=== PATIENT | male | born 1955 | race African-American/Black ===

== ENCOUNTER 2017-08-26 20:18 | Emergency (ER) | payer BC ==
[2017-08-26] MEDS ORDERED: NA CHLORIDE 0.9% 500 ML ONE (21:08)
[2017-08-26] MEDS ORDERED: KETOROLAC 30 MG/ML INJ ONE (21:08)
[2017-08-26] MEDS ORDERED: MORPHINE 4 MG/ML SYR ONE (21:08)
[2017-08-26 21:11] LABS: Absolute Lymphocytes (CBC) 0.6 K/uL (0.7-4.9); Absolute Monocytes 1.3 K/uL (0.1-1.3); Absolute Neutrophil 17.3 K/uL (1.8-8.0); Basophils % 0.2 % (0-1.3); Eosinophils % 0.1 % (0-4.4); Hematocrit 36.7 % (39.6-49.0); Lymphocytes % 3.2 % (15.3-44.8); MCV 84.8 fL (80-100); MPV 8.4 fL (7.6-11.3); Monocytes % 6.9 % (3.3-12.3); RBC Red Blood Cell Count 4.33 M/uL (4.33-5.43)
[2017-08-26 21:28] LABS: Albumin 3.2 g/dL (3.4-5.0); Bilirubin Direct 0.2 mg/dL (0-0.2); Bilirubin Total 0.7 mg/dL (0.2-1.0); Potassium 3.6 mmol/L (3.5-5.1); Protein, Total 8.7 g/dL (6.4-8.2)
[2017-08-26 21:42] LABS: Urine White Blood Cell Casts OK
[2017-08-26 21:43] LABS: Blood Morphology Comment NOT SEEN (NOT SEEN); Platelet Estimate ADEQ
--- NOTE | 2017-08-26 22:06 | RAD REPORT ---
EXAM DESCRIPTION: US - Scrotum Testicles - 08/26/2017 9:51 pm CLINICAL HISTORY: Testicular pain. Pain and swelling COMPARISON: No comparisons FINDINGS: The right testicle 4.6 x 3.2 x 2.5 cm. No intratesticular masses or evidence of testicular torsion. The left testicle 4.3 x 2.8 x 1.7 cm. No intratesticular masses or evidence of testicular torsion. Increased blood flow is seen surrounding the right testicle with echogenic tissue also noted. The fin dings are suspicious for epididymitis. The left epididymis appears normal. No pathologic fluid collection. IMPRESSION: Right epididymitis is suspected.
[2017-08-27] MEDS ORDERED: NA CHLORIDE 0.9% 1,000 ML ONE (00:13)
[2017-08-27 00:44] LABS: Urine Blood NEGATIVE (NEG); Urine Glucose NEGATIVE (NEG); Urine Protein 1+ (NEG); Urine Specific Gravity 1.015 (1.005-1.030); Urine pH 5.5 (5.0-7.0)
[2017-08-27 00:56] LABS: Urine Bacteria >50 /HPF (NONE SEEN); Urine Culture Reflex Order REFLEXED; Urine RBC NONE SEEN /HPF (NONE SEEN)
--- NOTE | 2017-08-27 01:43 | ER ---
Nurse's Notes [facility] Name: Vlad Hart Age: 61 yrs Sex: Male : 1955 Arrival Date: 08/26/2017 Time: 20:19 Bed 8 Private MD: Tung Aguilar Diagnosis: Epididymitis-Left Presentation: 08/26 20:32 Presenting complaint: Patient states: Reports right groin pain since yesterday with aj swelling to right testicle. Transition of care: patient was not received from another setting of care. Onset of symptoms was August 25, 2017. Risk Assessment: Do you want to hurt yourself or someone else? Patient reports no desire to harm self or others. Initial Sepsis Screen: Does the patient meet any 2 criteria? No. Patient's initial sepsis screen is negative. Does the patient have a suspected source of infection? No. Patient's initial sepsis screen is negative. Care prior to arrival: None. 20:32 Method Of Arrival: Ambulatory aj 20:32 Acuity: ARIADNA 2 aj Triage Assessment: 20:33 General: Appears in no apparent distress. comfortable, Behavior is calm, cooperative, aj appropriate for age. Pain: Complains of pain in groin and right femoral area. Neuro: Level of Consciousness is awake, alert, obeys commands, Oriented to person, place, time, situation, Appropriate for age. Respiratory: Airway is patent Respiratory effort is even, unlabored, Respiratory pattern is regular, symmetrical. : Reports pain in right in suprapubic area testicle. Derm: Skin is intact, is healthy with good turgor, Skin is pink, warm \T\ dry. normal. Historical: - Allergies: 20:33 No Known Allergies; aj - Home Meds: 20:33 unknown HTN med [Active]; aj - PMHx: 20:33 Hypertension; asbestosis; aj - PSHx: 20:33 None; aj - Immunization history:: Adult Immunizations up to date. - Social history:: Smoking status: Patient uses tobacco products, smokes one pack cigarettes per day. - Ebola Screening: : Patient negative for fever greater than or equal to 101.5 degrees Fahrenheit, and additional compatible Ebola Virus Disease symptoms Patient denies exposure to infectious person Patient denies travel to an Ebola-affected area in the 21 days before illness onset No symptoms or risks identified at this time. Screenin:16 Abuse screen: Denies threats or abuse. Denies injuries from another. Nutritional kr2 screening: No deficits noted. Tuberculosis screening: No symptoms or risk factors identified. Fall Risk IV access (20 points). Assessment: 20:40 General: Appears in no apparent distress. comfortable, well groomed, well developed, kr2 well nourished, Behavior is calm, cooperative, appropriate for age. Pain: Complains of pain in right femoral area and groin Pain does not radiate. Pain currently is 0 out of 10 on a pain scale. at worst was 8 out of 10 on a pain scale. Quality of pain is described as sharp, shooting, stabbing, Is continuous, Alleviated by rest, Aggravated by increased activity. Neuro: Level of Consciousness is awake, alert, obeys commands, Oriented to person, place, time, situation, Appropriate for age. Cardiovascular: Capillary refill < 3 seconds in bilateral fingers Patient's skin is warm and dry. Respiratory: Airway is patent Respiratory effort is even, unlabored, Respiratory pattern is regular, symmetrical. GI: Abdomen is flat, non-distended, Abd is soft and non tender X 4 quads. : Denies inability to void. : Reports testicular swelling. EENT: Oral mucosa is moist. Derm: Skin is intact, is healthy with good turgor, Skin is pink, warm \T\ dry. Musculoskeletal: Circulation, motion, and sensation intact. 22:09 Reassessment: Patient appears in no apparent distress at this time. Patient and/or kr2 family updated on plan of care and expected duration. Pain level reassessed. Patient is alert, oriented x 3, equal unlabored respirations, skin warm/dry/pink. Patient returned from ultrasound with saline lock clotted off with blood. Removed, catheter intact, pressure dressing applied. 08/27 01:25 Reassessment: Patient appears in no apparent distress at this time. Patient and/or rv family updated on plan of care and expected duration. Pain level reassessed. Patient is alert, oriented x 3, equal unlabored respirations, skin warm/dry/pink. patient is lying on bed. comfortable with stable vital signs. awaiting ct scan result. Vital Signs: 08/26 20:33 BP 151 / 97; Pulse 90; Resp 17; Temp 98.6; Pulse Ox 98% on R/A; Weight 83.91 kg; Height aj 6 ft. 1 in. (185.42 cm); 22:00 BP 168 / 96; Pulse 92; Resp 16; Pulse Ox 99% on R/A; kr2 23:00 BP 153 / 97; Pulse 94; Resp 17; Pulse Ox 99% on R/A; kr2 08/27 00:44 BP 180 / 98; Pulse 92; Resp 16; Pulse Ox 99% on R/A; kr2 01:26 BP 165 / 90; Pulse 98; Resp 16; Pulse Ox 100% on R/A; rv 08/26 20:33 Body Mass Index 24.41 (83.91 kg, 185.42 cm) aj ED Course: 08/26 20:19 Patient arrived in ED. ds1 20:19 Tung Aguilar MD is Private Physician. ds1 20:33 Triage completed. aj 20:33 Arm band placed on right wrist. Patient placed in an exam room. aj 20:38 Kelvin Moore PA is PHCP. cp 20:38 Lewis Archer MD is Attending Physician. cp 20:40 Patient has correct armband on for positive identification. Bed in low position. Call kr2 light in reach. Side rails up X 1. Pulse ox on. NIBP on. 20:45 Nedra Pires, [facility] is Primary Nurse. kr2 20:45 Door closed. Warm blanket given. Pillow given. kr2 20:45 Inserted saline lock: 22 gauge in left antecubital area, using aseptic technique. Blood kr2 collected. 21:44 Ultrasound completed. Patient tolerated well. sg3 21:51 US Scrotum Testicles In Process Unspecified. EDMS 22:10 IV discontinued, intact, bleeding controlled, No redness/swelling at site. Pressure kr2 dressing applied. 22:10 Inserted saline lock: 20 gauge in right antecubital area, using aseptic technique. kr2 23:[address] via wheelchair. kw1 08/27 00:00 Urine collected: clean catch specimen, clear. kr2 00:14 CT completed. Patient tolerated procedure well. Patient moved back from CT. kw1 00:20 CT Abd/Pelvis - W/Contrast In Process Unspecified. EDMS 01:42 Ji Dahl MD is Referral Physician. cp 01:58 Urine Culture Sent. rv 01:59 No provider procedures requiring assistance completed. rv Administered Medications: 08/26 21:15 Drug: TORadol 30 mg Route: IVP; Site: left antecubital; kr2 21:30 Follow up: Response: No adverse reaction; Pain is decreased kr2 21:15 Drug: NS 0.9% 500 ml Route: IV; Rate: bolus; Site: left antecubital; kr2 22:30 Follow up: Response: No adverse reaction; IV Status: Completed infusion kr2 21:15 Drug: morphine 2 mg Route: IVP; Site: left antecubital; kr2 08/27 01:59 Follow up: Response: No adverse reaction; Pain is decreased rv 00:43 Drug: NS 0.9% 1000 ml Route: IV; Rate: 1 bolus; Site: right antecubital; kr2 01:58 Follow up: IV Status: Completed infusion rv 01:48 Drug: Tylenol #3 (300 mg-30 mg) 2 tabs Route: PO; aa1 01:58 Follow up: Response: Medication administered at discharge. rv 01:48 Drug: Rocephin - (cefTRIAXone) 1 grams Route: IVPB; Infused Over: 30 mins; Site: right aa1 antecubital; 01:58 Follow up: Response: Medication administered at discharge. rv 01:48 Drug: LevaQUIN 500 mg Route: PO; aa1 01:58 Follow up: Response: Medication administered at discharge. rv Outcome: 01:43 Discharge ordered by MD. cp 01:59 Discharged to home ambulatory. rv 01:59 Condition: improved 01:59 Discharge instructions given to patient, Instructed on discharge instructions, medication usage. 02:00 Patient left the ED. rv Addendum: 08/30/2017 11:34 Addendum: Culture Results: Positive urine culture. Bacteria is resistant to, has s s intermediate sensitivity, or is not tested against prescribed antibiotics. Report given to JORY for further evaluation and then to coach builder for follow up with patient. Phone call Attempt #1 Not a working number Certified letter sent to listed address for patient. Signatures: Dispatcher [employer] EDMS France Puente RN RN aa1 Twila Zepeda RN RN Awilda Arzola ds1 Sariah Harrison RN RN ss Page, Corey, PA PA Nedra Betancourt RN RN kr2 Maritza Jimenez kw1 Neisha Sagastume sg3 Mark Anthony Mcmullen, RN RN rv
--- NOTE | 2017-08-27 01:43 | EDPHYS ---
Physician Documentation [facility] Name: Vlad Hart Age: 61 yrs Sex: Male : 1955 Arrival Date: 08/26/2017 Time: 20:19 Bed 8 Private MD: Tung Aguilar ED Physician Lewis Archer HPI: 08/26 21:00 This 61 yrs old Black Male presents to ER via Ambulatory with complaints of Side cp Abdominal Pain. 21:00 The patient presents with right testicle swelling and pain. cp 21:00 Onset: The symptoms/episode began/occurred 3 day(s) ago. Associated signs and symptoms: cp Pertinent positives: abdominal pain, Pertinent negatives: constipation, dysuria, fever, hematuria, vomiting. Severity of symptoms: in the emergency department the symptoms are unchanged, despite home interventions. Historical: - Allergies: 20:33 No Known Allergies; aj - Home Meds: 20:33 unknown HTN med [Active]; aj - PMHx: 20:33 Hypertension; asbestosis; aj - PSHx: 20:33 None; aj - Immunization history:: Adult Immunizations up to date. - Social history:: Smoking status: Patient uses tobacco products, smokes one pack cigarettes per day. - Ebola Screening: : Patient negative for fever greater than or equal to 101.5 degrees Fahrenheit, and additional compatible Ebola Virus Disease symptoms Patient denies exposure to infectious person Patient denies travel to an Ebola-affected area in the 21 days before illness onset No symptoms or risks identified at this time. ROS: 21:10 Constitutional: Negative for body aches, chills, fever, poor PO intake. cp 21:10 Eyes: Negative for injury, pain, redness, and discharge. cp 21:10 ENT: Negative for drainage from ear(s), ear pain, sore throat, difficulty swallowing, difficulty handling secretions. 21:10 Cardiovascular: Negative for chest pain, edema, palpitations. 21:10 Respiratory: Negative for cough, shortness of breath, wheezing. 21:10 Abdomen/GI: Positive for abdominal pain, of the right lower quadrant, Negative for vomiting, diarrhea, constipation, black/tarry stool, rectal bleeding. 21:10 Back: Negative for pain at rest, pain with movement, radiated pain. 21:10 : Positive for testicular pain testicular swelling, Negative for injury or acute deformity, urinary symptoms, hematuria, penile pain. 21:10 Skin: Negative for cellulitis, rash. 21:10 Neuro: Negative for altered mental status, headache, syncope, weakness. 21:10 All other systems are negative. Exam: 21:15 Constitutional: The patient appears in no acute distress, alert, awake, non-toxic, well cp developed, well nourished, uncomfortable. 21:15 Head/Face: Normocephalic, atraumatic. cp 21:15 Eyes: Periorbital structures: appear normal, Conjunctiva: normal, no exudate, no injection, Sclera: no appreciated abnormality, Lids and lashes: appear normal, bilaterally. 21:15 ENT: External ear(s): are unremarkable, Nose: is normal, Mouth: Lips: moist, Oral mucosa: pink and intact, moist, Posterior pharynx: is normal, airway is patent, no erythema, no exudate, Voice: is normal. 21:15 Neck: ROM/movement: is normal, is supple, without pain, no range of motions limitations, no nuchal rigidity. 21:15 Chest/axilla: Inspection: normal, Palpation: is normal, no crepitus, no tenderness. 21:15 Cardiovascular: Rate: normal, Rhythm: regular, Edema: is not appreciated, JVD: is not appreciated. 21:15 Respiratory: the patient does not display signs of respiratory distress, Respirations: normal, no use of accessory muscles, no retractions, no splinting, no tachypnea, labored breathing, is not present, Breath sounds: are clear throughout, no decreased breath sounds, no stridor, no wheezing. 21:15 Abdomen/GI: Inspection: abdomen appears normal, Bowel sounds: active, all quadrants, Palpation: soft, in all quadrants, mild abdominal tenderness, in the right lower quadrant, voluntary guarding, is elicited in the right lower quadrant, involuntary guarding, is not appreciated. 21:15 : CVA tenderness, is absent, Male external genitalia: swelling, of the right testicle is noted, of the epididymis area, that is moderate, tenderness, of the right testicle is noted, of the epididymis area, that is moderate. 21:15 Skin: cellulitis, is not appreciated, no rash present. Vital Signs: 20:33 BP 151 / 97; Pulse 90; Resp 17; Temp 98.6; Pulse Ox 98% on R/A; Weight 83.91 kg; Height aj 6 ft. 1 in. (185.42 cm); 22:00 BP 168 / 96; Pulse 92; Resp 16; Pulse Ox 99% on R/A; kr2 23:00 BP 153 / 97; Pulse 94; Resp 17; Pulse Ox 99% on R/A; kr2 08/27 00:44 BP 180 / 98; Pulse 92; Resp 16; Pulse Ox 99% on R/A; kr2 01:26 BP 165 / 90; Pulse 98; Resp 16; Pulse Ox 100% on R/A; rv 08/26 20:33 Body Mass Index 24.41 (83.91 kg, 185.42 cm) aj MDM: 08/26 20:42 Patient medically screened. cp 08/27 00:00 Differential diagnosis: appendicitis, UTI, urinary retention, prostatitis, urethritis, cp kidney stone. 01:42 Data reviewed: vital signs, nurses notes, lab test result(s), radiologic studies, CT cp scan, ultrasound. 01:42 Counseling: I had a detailed discussion with the patient and/or guardian regarding: the cp historical points, exam findings, and any diagnostic results supporting the discharge/admit diagnosis, lab results, radiology results, the need for outpatient follow up, a urologist, to return to the emergency department if symptoms worsen or persist or if there are any questions or concerns that arise at home. Response to treatment: the patient's symptoms have markedly improved after treatment, VSS. Pain markedly improved. Will discharge to home for continued monitoring. 08/26 20:53 Order name: Amylase, Serum; Complete Time: 21:54 cp 08/26 20:53 Order name: Basic Metabolic Panel; Complete Time: 21:54 cp 08/26 21:55 Interpretation: Normal except: NA 133; GLUC 131; BUN 19; CRE 1.50; GFR 58. cp 08/26 20:53 Order name: CBC with Diff; Complete Time: 21:54 cp 08/26 21:55 Interpretation: Normal except: WBC 19.3; HGB 11.7; HCT 36.7; MCHC 31.9; MARTIN% 89.6; LYM% cp 3.2; NEUT A 17.3; LYMA 0.6. 08/26 20:53 Order name: Creatinine for Radiology; Complete Time: 21:54 cp 08/26 20:53 Order name: Hepatic Function; Complete Time: 21:54 cp 08/26 21:55 Interpretation: Normal except: TP 8.7; ALB 3.2; GLOB 5.5; A/G 0.6. 08/26 20:53 Order name: Lipase; Complete Time: 21:54 cp 08/26 20:53 Order name: Urine Microscopic Only; Complete Time: 01:39 cp 08/27 01:39 Interpretation: Normal except: UWBC 20-50; UBACT >50. 08/26 20:58 Order name: US Scrotum Testicles; Complete Time: 23:47 08/26 23:47 Interpretation: Report reviewed. 08/26 20:58 Order name: CT Abd/Pelvis - W/Contrast 08/26 21:14 Order name: CBC Smear Scan; Complete Time: 21:54 [facility] 08/27 00:40 Order name: Urine Dipstick--Ancillary (enter results); Complete Time: 01:39 rust 08/27 00:58 Order name: Urine Culture [facility] 08/26 20:53 Order name: IV Saline Lock; Complete Time: 21:16 08/26 20:53 Order name: Labs collected and sent; Complete Time: 21:15 08/26 20:53 Order name: Urine Dipstick-Ancillary (obtain specimen); Complete Time: 00:38 cp Administered Medications: 08/26 21:15 Drug: TORadol 30 mg Route: IVP; Site: left antecubital; kr2 21:30 Follow up: Response: No adverse reaction; Pain is decreased kr2 21:15 Drug: NS 0.9% 500 ml Route: IV; Rate: bolus; Site: left antecubital; kr2 22:30 Follow up: Response: No adverse reaction; IV Status: Completed infusion kr2 21:15 Drug: morphine 2 mg Route: IVP; Site: left antecubital; kr2 08/27 01:59 Follow up: Response: No adverse reaction; Pain is decreased rv 00:43 Drug: NS 0.9% 1000 ml Route: IV; Rate: 1 bolus; Site: right antecubital; kr2 01:58 Follow up: IV Status: Completed infusion rv 01:48 Drug: Tylenol #3 (300 mg-30 mg) 2 tabs Route: PO; aa1 01:58 Follow up: Response: Medication administered at discharge. rv 01:48 Drug: Rocephin - (cefTRIAXone) 1 grams Route: IVPB; Infused Over: 30 mins; Site: right aa1 antecubital; 01:58 Follow up: Response: Medication administered at discharge. rv 01:48 Drug: LevaQUIN 500 mg Route: PO; aa1 01:58 Follow up: Response: Medication administered at discharge. rv Disposition: 08/27/17 01:43 Discharged to Home. Impression: Epididymitis - Left. - Condition is Stable. - Discharge Instructions: Epididymitis. - Prescriptions for Levaquin 500 mg Oral Tablet - take 1 tablet by ORAL route once daily for 10 days; 10 tablet. Naprosyn 500 mg Oral Tablet - take 1 tablet by ORAL route 2 times per day take with food; 20 tablet. Tylenol- Codeine #3 300-30 mg Oral Tablet - take 2 tablets by ORAL route every 6 hours As needed; 15 tablet. - Medication Reconciliation Form, Thank You Letter, Antibiotic Education, Prescription Opioid Use form. - Follow up: Ji Dahl MD; When: 2 - 3 days; Reason: Recheck today's complaints. - Problem is new. - Symptoms have improved. Addendum: 08/30/2017 16:10 Co-signature as Attending Physician, Lewis Archer MD. g s Signatures: Dispatcher [employer] EDMS France Puente RN RN aa1 Twila Zepeda RN RN Kelvin Ferguson PA PA cp Lewis Archer MD MD Nedra Pires RN RN kr2 Mark Anthony Mcmullen, RN RN rv Corrections: (The following items were deleted from the chart) 08/27 02:00 01:43 08/27/2017 01:43 Discharged to Home. Impression: Epididymitis - Left. Condition rv is Stable. Forms are Medication Reconciliation Form, Thank You Letter, Antibiotic Education, Prescription Opioid Use. Follow up: Ji Dahl; When: 2 - 3 days; Reason: Recheck today's complaints. Problem is new. Symptoms have improved. cp
[2017-08-27] MEDS ORDERED: CODEINE 30MG/APAP 300MG TAB ONE (01:46)
[2017-08-27] MEDS ORDERED: levoFLOXacin 500 MG TAB ONE (01:46)
[2017-08-27] MEDS ORDERED: CEFTRIAXONE/SWI 1gm 1 GM/10 ML SYR ONE (01:46)
--- NOTE | 2017-08-27 12:52 | RAD REPORT ---
EXAM DESCRIPTION: CTAbdomen Pelvis W Contrast - 08/27/2017 7:23 am CLINICAL HISTORY: Abdominal pain. RLQ abdomen pain COMPARISON: Scrotum Testicles dated 08/26/2017 TECHNIQUE: Biphasic CT imaging of the abdomen and pelvis was performed with 100 ml non-ionic IV cont rast. All CT scans are performed using dose optimization technique as appropriate and may include automated exposure control or mA/KV adjustment according to patient size. FINDINGS: 5 mm nodule inferior left base. The liver, spleen, pancreas, adrenal glands and right kidney are within normal limits. Small benign l iver and left renal cysts are noted. Small nonobstructing stone is seen measuring 5 mm inferior left kidney. No bowel obstruction, free air, free fluid or abscess. Colonic diverticulosis without diverticulitis. The appendix is normal. No evidence of significant lymphadenopathy. No suspicious bony findings. IMPRESSION: No acute intra-abdominal or pelvic finding. 5 mm solid noncalcified pulmonary nodule inferior left base. According to the 2017 Fleischner guidelines for solid nodules <6 mm in size: Single nodule: *Low risk - No routine follow-up. *High risk - Optional CT at 12 months.
== END 2017-08-27 02:00 | disposition home or self-care (01) ==
LOC: ER 20:18
DX: N45.1 Epididymitis (principal); I10 Essential (primary) hypertension; F17.210 Nicotine dependence, cigarettes, uncomplicated
CPT/HCPCS: 36415; 74177; 76870; 80048; 80076; 81003; 81015; 82150; 83690; 85025; 87077; 87086; 87088; 87186; 99284; J0696; J7030; Q9967

== ENCOUNTER 2021-02-05 01:47 | Inpatient (IN) | payer BC ==
[2021-02-05] MEDS ORDERED: NITROGLYCERIN/D5W 50 MG/250 ML BTL IV ONE ×3 (01:49→22:38)
--- OUTSIDE RECORDS SUMMARY | 2021-02-05 01:50 | XMS REPORT | Continuity of Care Document ---
:1955 Author Organization [facility] t Address [address] [place] [id number] Care Team Providers Name Role Phone Hardik RODRIGUEZ Attending Clinician Unavailable Xavier JAUREGUI Attending Clinician Hardik Rodriguez MD Attending Clinician Enedelia Machuca Attending Clinician Enedelia GROSSMAN Attending Clinician Unavailable Payers Payer Name Policy Type Policy Number Effective Date Expiration Date S [facility] [place] - [id number] 2016 00:00:00 OUT OF STATE Problems Condition Condition Condition Status Onset Resolution Last Treating Co mments Source Name Details Category Date Date Treatment Clinician Date No known No known Disease Unive rs active active ity of problems problems [facility] Allergies, Adverse Reactions, Alerts Allergy Allergy Status Severity Reaction(s) Onset Inactive Treating Comm ents Source Name Type Date Date Clinician NO KNOWN Drug Active Univers ALLERGIE Class ity of S [facility] Social History Social Habit Start Date Stop Date Quantity Comments Source Sex Assigned At Uni versity [facility] Exposure to SARS-CoV-2 Not sure [facility] [place] (event) [facility] Smoking Status Start Date Stop Date Source Unknown if ever [facility] Medications Ordered Filled Start Stop Current Ordering Indication Dosage Frequency Signature Comments Components Source Medication Medication Date Date Medication? Clinician (SIG) Name Name triamcinolo 2019-03 Yes [id number] Apply to [facility] ne 2-16 area(s) 2 ity of acetonide 00:00: (two) [place] 0.1 % 00 times Medical ointment daily. Branch doxycycline 2019-03 2020- No [id number] 100mg Take 1 Univers monohydrate 04-22 12-24 capsule by i ty of 100 mg 00:00: 05:59 mouth 2 [place] capsule 00 :00 (two) Medical times [place] daily for 7 days. famotidine 2019-03 2020- No 40mg 40 mg, [facility] ers (PEPCID) 2 12-05 Oral, ity of tablet 40 23:15: 22:25 ONCE, 1 [place] mg 00 :00 dose, Sat Medical 02/09/20 at Branch 1715, CLAUDIO cloNIDine 2019-03 2020- No .1mg 0.1 mg, [facility] ers (CATAPRES) 04-11 12-05 Oral, ity of tablet 0.1 23:15: 22:06 ONCE, 1 [place] mg 00 :00 dose, Sat Medical 02/09/20 at Branch 1715, STAT hydrOXYzine 2019-03 Yes [id number] 25mg Take 1 Univers 25 mg 2-05 tablet by ity of tablet 00:00: mouth [place] 00 every 6 Medical (six) Branch hours. hydrOXYzine 2019-03 Yes [id number] 25mg Take 1 Univers 25 mg 2-05 tablet by ity of tablet 00:00: mouth [place] 00 every 6 Medical (six) Branch hours. hydrOXYzine 2019-03 Yes [id number] 25mg Take 1 Univers 25 mg 2-05 tablet by ity of tablet 00:00: mouth [place] 00 every 6 Medical (six) Branch hours. hydrOXYzine 2019-03 Yes [id number] 25mg Take 1 Univers 25 mg 2-05 tablet by ity of tablet 00:00: mouth [place] 00 every 6 Medical (six) Branch hours. hydrOXYzine 2019-03 Yes [id number] 25mg Take 1 Univers 25 mg 2-05 tablet by ity of tablet 00:00: mouth [place] 00 every 6 Medical (six) Branch hours. naproxen 2018-0 Yes [id number] 550mg Take 1 Un lubna sodium 3-19 tablet by ity of (ANAPROX 00:00: mouth 2 [place] DS) 550 mg 00 (two) Medical tablet times Branch daily with meals. chlorphenir 2018-0 Yes [id number] 4mg Take 1 Univers amine 4 mg 3-19 tablet by ity of tablet 00:00: mouth [place] 00 every 6 Medical (six) Branch hours as needed for Allergies or Runny nose. Phenyleph-D 2019-0 Yes [id number] As Un lubna M-Acetamin- 3-19 directed ity of [place] 00:00: [place]. [place] (TYLENOL 00 Daytime Medical COLD AND and Branch FLU SEVERE) nighttime 5-325-20 combo pack 0 mg/15 mL Liqd benzonatate 2019-0 Yes [id number] 100mg Take 1 Univers 100 mg 3-19 capsule by ity of capsule 00:00: mouth 3 [place] 00 (three) Medical times Branch daily as needed for Cough. naproxen 2019-0 Yes [id number] 550mg Take 1 Un lubna sodium 3-19 tablet by ity of (ANAPROX 00:00: mouth 2 [place] DS) 550 mg 00 (two) Medical tablet times Branch daily with meals. chlorphenir 2019-0 Yes [id number] 4mg Take 1 Univers amine 4 mg 3-19 tablet by ity of tablet 00:00: mouth [place] 00 every 6 Medical (six) Branch hours as needed for Allergies or Runny nose. Phenyleph-D 2018- Yes [id number] As Un lubna M-Acetamin- 3-19 directed ity of [place] 00:[place]: [place] (TYLENOL 00 Daytime Medical COLD AND and Branch FLU SEVERE) nighttime 5325-20 combo pack 0 mg/15 mL Liqd benzonatate 2019-0 Yes [id number] 100mg Take 1 Univers 100 mg 3-19 capsule by ity of capsule 00:00: mouth 3 00 (three) Medical times Branch daily as needed for Cough. naproxen 2018-0 Yes [id number] 550mg Take 1 Un lubna sodium 3-19 tablet by ity of (ANAPROX 00:00: mouth 2 [place] DS) 550 mg 00 (two) Medical tablet times Branch daily with meals. chlorphenir 2019-0 Yes [id number] 4mg Take 1 Univers amine 4 mg 3-19 tablet by ity of tablet 00:00: mouth [place] 00 every 6 Medical (six) Branch hours as needed for Allergies or Runny nose. Phenyleph-D 2019-0 Yes [id number] As Un lubna M-Acetamin- 3-19 directed ity of [place] 00:00: [place] (TYLENOL 00 Daytime Medical COLD AND and Branch FLU SEVERE) nighttime 5-10-325-20 combo pack 0 mg/15 mL Liqd benzonatate 2019-0 Yes [id number] 100mg Take 1 Univers 100 mg 3-19 capsule by ity of capsule 00:00: mouth 3 [place] 00 (three) Medical times Branch daily as needed for Cough. naproxen 2019-0 Yes [id number] 550mg Take 1 Un lub[place] sodium 3-19 tablet by ity of (ANAPROX 00:00: mouth 2 [place] DS) 550 mg 00 (two) Medical tablet times Branch daily with meals. chlorphenir 2019-0 Yes [id number] 4mg Take 1 Univers amine 4 mg 3-19 tablet by ity of tablet 00:00: mouth [place] 00 every 6 Medical (six) Branch hours as needed for Allergies or Runny nose. Phenyleph-D 2018-0 Yes [id number] As Un lubna M-Acetamin- 3-19 directed ity of [place] 00:00: [place]. [place] (TYLENOL 00 Daytime Medical COLD AND and Branch FLU SEVERE) nighttime 5-10-325-20 combo pack 0 mg/15 mL Liqd benzonatate 2018-0 Yes [id number] 100mg Take 1 Univers 100 mg 3-19 capsule by ity of capsule 00:00: mouth 3 00 (three) Medical times Branch daily as needed for Cough. naproxen 2018-0 Yes [id number] 550mg Take 1 Un lub[place] sodium 3-19 tablet by ity of (ANAPROX 00:00: mouth 2 [place] DS) 550 mg 00 (two) Medical tablet times Branch daily with meals. chlorphenir 2018-0 Yes [id number] 4mg Take 1 Univers amine 4 mg 3-19 tablet by ity of tablet 00:00: mouth [place] 00 every 6 Medical (six) Branch hours as needed for Allergies or Runny nose. Phenyleph-D Yes [id number] As Un lubna M-Acetamin- 3-19 directed ity of [place] 00:00: [place]. [place] (TYLENOL 00 Daytime Medical COLD AND and Branch FLU SEVERE) nighttime 5-10-325-20 combo pack 0 mg/15 mL Liqd benzonatate 2019-0 Yes [id number] 100mg Take 1 Univers 100 mg 3-19 capsule by ity of capsule 00:00: mouth 3 [place] 00 (three) Medical times Branch daily as needed for Cough. cyclobenzap 2017-0 Yes 10mg Take 1 Univ ers rine 10 mg 5-11 tablet by ity of tablet 00:00: mouth at [place] 00 bedtime. Medical Branch acetaminoph 2017-0 Yes 1{tbl} Take 1 Un lubna en-codeine 5-11 tablet by ity of (TYLENOL-CO 00:00: mouth [place] DEINE #3) 00 every 4 Medical 300-30 mg (four) Branch tablet hours as needed for Pain (scale 7-10). cyclobenzap 2017-0 Yes 10mg Take 1 Univ ers rine 10 mg 5-11 tablet by ity of tablet 00:00: mouth at [place] 00 bedtime. Medical Branch acetaminoph [id number] Yes 1{tbl} Take 1 Un lubna en-codeine 5-11 tablet by ity of (TYLENOL-CO 00:00: mouth [place] DEINE #3) 00 every 4 Medical 300-30 mg (four) Branch tablet hours as needed for Pain (scale 7-10). cyclobenzap 2017-0 Yes 10mg Take 1 Univ ers rine 10 mg 5-11 tablet by ity of tablet 00:00: mouth at [place] 00 bedtime. Medical Branch acetaminoph 0 Yes 1{tbl} Take 1 Un lubna en-codeine 5-11 tablet by ity of (TYLENOL-CO 00:00: mouth [place] DEINE #3) 00 every 4 Medical 300-30 mg (four) Branch tablet hours as needed for Pain (scale 7-10). cyclobenzap 2017-0 Yes 10mg Take 1 Univ ers rine 10 mg 5-11 tablet by ity of tablet 00:00: mouth at [place] 00 bedtime. Medical Branch acetaminoph 2017-0 Yes 1{tbl} Take 1 Un lubna en-codeine 5-11 tablet by ity of (TYLENOL-CO 00:00: mouth [place] DEINE #3) 00 every 4 Medical 300-30 mg (four) Branch tablet hours as needed for Pain (scale 7-10). cyclobenzap 2017-0 Yes 10mg Take 1 Univ ers rine 10 mg 5-11 tablet by ity of tablet 00:00: mouth at [place] 00 bedtime. Medical Branch acetaminoph 2017-0 Yes 1{tbl} Take 1 Un lubna en-codeine 5-11 tablet by ity of (TYLENOL-CO 00:00: mouth [place] DEINE #3) 00 every 4 Medical 300-30 mg (four) Branch tablet hours as needed for Pain (scale 7-10). Vital Signs Vital Name Observation Time Observation Value Comments Source Systolic blood 2020-02-09 22:50:00 192 mm[Hg] Univer sity of pressure [facility] Diastolic blood 2020-02-09 22:50:00 117 mm[Hg] Unive rsity of [facility] Heart rate 2020-02-09 22:50:00 93 /min [facility] Body temperature 2020-02-09 21:44:00 37 [facility] 2020-02-09 21:44:00 18 /min [facility] Body weight 2020-02-09 21:44:00 88.451 kg [facility] BMI 2020-02-09 21:44:00 25.73 kg/m2 [facility] Oxygen saturation in 2020-02-09 21:44:00 96 /min [facility] blood by [facility] Pulse oximetry Branch Procedures Procedure Date / Time Performing Clinician Source Performed DERMATOPATHOLOGY TISSUE 2020-02-13 00:00:00 Deshawn Rodriguez [facility] Medical Branch NOTICE OF PRIVACY 2020-02-09 21:39:17 Doctor Unassigned, [facility] [place] [facility] Branch NOTICE OF PRIVACY 2020-02-09 21:39:16 Doctor Unassigned, [facility] [place] [facility] Branch CONSENT/REFUSAL FOR 2020-02-09 21:38:50 Doctor Unassigned, [facility] DIAGNOSIS AND TREATMENT [place] [facility] [place] Encounters Start End Encounter Admission Attending Care Care Encounter Source Date/Time Date/Time Type Type Clinicians Facility Department ID 2020-03-11 2020-03-11 Outpatient R [facility] [id number] Univers 13:30:00 13:30:00 [id number] [facility] 2020-03-11 2020-03-11 Outpatient R [facility] [id number] Univers 13:30:00 13:30:[facility] 2020-02-27 2020-02-27 Outpatient R [facility] [id number] Univers 13:00:00 13:00:00 [id number] [facility] 2020-02-27 2020-02-27 Outpatient R RODRIGUEZ, [facility] [id number] Univers 13:00:00 13:00:[address] [facility] 2020-02-18 2020-02-18 [id number] Univers 00:00:00 00:00:00 Hai MULTISPEC [id number] ity of IALTY [id number] [facility] [id number] [address] DIABETES [facility] 2020-02-13 2020-02-13 Office [place] [facility] [id number] Univers 09:45:10 10:49:43 Visit Deshawn Rodriguez MULTISPEC 350.1.1 3.10 ity of IALTY [id number] [facility] [id number] [address] DIABETES [facility] 2020-02-13 2020-02-13 Outpatient [facility] [id number] Univers 10:00:00 10:00:[address] [facility] 2020-02-09 2020-02-09 Emergency [facility] [id number] Univers 15:48:00 16:56:00 Otilia Briceño [id number] i ty of Michelle [id number] [facility] [id number] [facility] 084 Branch 2020-02-09 2020-02-09 [id number] Univers 15:39:00 15:39:[address] [facility] Results This patient has no known results.
[2021-02-05] MEDS ORDERED: FUROSEMIDE 100 MG/10 ML VIAL IV ONE (01:51)
[2021-02-05] MEDS ORDERED: MORPHINE 2 MG/ML SYR ONE ×2 (01:51→05:42)
[2021-02-05] MEDS ORDERED: ASPIRIN 81 MG CHEWABLE TABLET ONE (02:06)
[2021-02-05] MEDS ORDERED: HEPARIN/D5W 25,000 UNIT/500 ML BAG IV ONE (02:07)
[2021-02-05] MEDS ORDERED: HEPARIN 5000 UNIT/ML 1 ML VIAL ONE ×3 (02:14→14:29)
[2021-02-05 02:18] LABS: Arterial Blood Carboxyhemoglob 1.1 % (0-1.5); Blood Gas Oxyhemoglobin 97.5 % (94-97); Blood O2 Saturation 99.7 % (92-98.5)
[2021-02-05 02:24] LABS: Protime INR 1.25
[2021-02-05 02:34] LABS: Absolute Lymphocytes (CBC) 2.9 K/uL (0.7-4.9); Basophils % 0.9 % (0-1.3); Hematocrit 32.7 % (39.6-49.0); Lymphocytes % 36.2 % (15.3-44.8); MPV 9.5 fL (7.6-11.3)
[2021-02-05 02:48] LABS: Albumin 2.6 g/dL (3.4-5.0); Bilirubin Direct 0.2 mg/dL (0-0.2); Bilirubin Total 0.7 mg/dL (0.2-1.0); Magnesium 2.5 mg/dL (1.8-2.4); Potassium 3.7 mmol/L (3.5-5.1); Protein, Total 7.9 g/dL (6.4-8.2); Troponin (Emerg Dept Use Only) 0.02 ng/mL (0.0-0.045)
[2021-02-05 02:51] LABS: Urine Blood 1+ (Negative); Urine Glucose Negative (Negative); Urine Protein 3+ (Negative); Urine Specific Gravity 1.025 (1.005-1.030)
--- NOTE | 2021-02-05 02:53 | EDPHYS ---
Physician Documentation [facility] Name: Vlad Hart Age: 65 yrs Sex: Male : 1955 Arrival Date: 02/05/2021 Time: 01:49 Bed 5 Private MD: ED Physician Jaron Butterfield HPI: 02/05 02:14 This 65 yrs old Black Male presents to ER via EMS with complaints of Respiratory jr8 Distress. 02:14 This is a 65-year-old male patient with a history of hypertension that had sudden onset jr8 of respiratory distress that started tonight. EMS was called. Patient was found to be markedly hypertensive on scene in acute distress with a room air saturation of 86%. Patient was put on nonrebreather and IV was started prior to arrival. Patient alert and oriented x4 upon arrival but in acute respiratory distress. Patient was put on BiPAP immediately upon arrival.. Historical: - Allergies: 02:02 No Known Allergies; df1 - Home Meds: 02:02 Unknown HTN med [Active]; df1 - PMHx: 02:02 asbestosis; Hypertension; df1 - PSHx: 02:02 None; df1 - Immunization history:: Adult Immunizations not up to date. - Social history:: Smoking status: Patient reports the use of cigarette tobacco products, smokes one pack cigarettes per day. Patient uses alcohol, occasionally. Patient/guardian denies using street drugs. ROS: 02:14 Eyes: Negative for injury, pain, redness, and discharge, ENT: Negative for injury, jr8 pain, and discharge, Neck: Negative for injury, pain, and swelling, Abdomen/GI: Negative for abdominal pain, nausea, vomiting, diarrhea, and constipation, Back: Negative for injury and pain, MS/Extremity: Negative for injury and deformity, Skin: Negative for injury, rash, and discoloration, Neuro: Negative for headache, weakness, numbness, tingling, and seizure. 02:14 Respiratory: Positive for dyspnea on exertion, orthopnea, shortness of breath. 02:14 All other systems are negative. Exam: 02:14 Eyes: Pupils equal round and reactive to light, extra-ocular motions intact. Lids and jr8 lashes normal. Conjunctiva and sclera are non-icteric and not injected. Cornea within normal limits. Periorbital areas with no swelling, redness, or edema. ENT: Nares patent. No nasal discharge, no septal abnormalities noted. Tympanic membranes are normal and external auditory canals are clear. Oropharynx with no redness, swelling, or masses, exudates, or evidence of obstruction, uvula midline. Mucous membranes moist. Neck: Trachea midline, no thyromegaly or masses palpated, and no cervical lymphadenopathy. Supple, full range of motion without nuchal rigidity, or vertebral point tenderness. No Meningismus. 02:14 Abdomen/GI: Soft, non-tender, with normal bowel sounds. No distension or tympany. No guarding or rebound. No evidence of tenderness throughout. Back: No spinal tenderness. No costovertebral tenderness. Full range of motion. Skin: Warm, dry with normal turgor. Normal color with no rashes, no lesions, and no evidence of cellulitis. MS/ Extremity: Pulses equal, no cyanosis. Neurovascular intact. Full, normal range of motion. Neuro: Awake and alert, GCS 15, oriented to person, place, time, and situation. Cranial nerves II-XII grossly intact. Motor strength 5/5 in all extremities. Sensory grossly intact. 02:14 Constitutional: The patient appears alert, awake, anxious, in obvious distress, moderately distressed. 02:14 Cardiovascular: Rate: tachycardic, Rhythm: regular, Pulses: Pulses are 2+ in right radial artery and left radial artery. Heart sounds: normal, normal S1and S2, no S3 or S4, no murmur, no rub, no gallop, Edema: 2+ edema to level of left midcalf, left ankle, left foot, right midcalf, right ankle and right foot, JVD: is noted bilaterally, to 2 cm. 02:14 ECG was reviewed by the Attending Physician. 02:14 Respiratory: moderate respiratory distress is noted, Respirations: labored breathing, tachypnea, Breath sounds: rales, that are moderate, are located in both bases. 02:49 ECG was reviewed by the Attending Physician. jr8 Vital Signs: 01:44 BP 218 / 135; Pulse 96; Resp 37 S; Temp 97.8(TE); Pulse Ox 88% on Non-rebreather mask; cc4 Weight 83.91 kg; Height 6 ft. 0 in. (182.88 cm); 01:45 BP 204 / 130; Pulse 91; Resp 36; Pulse Ox 89% on BiPAP; cc4 02:00 BP 204 / 130; Pulse 117; Resp 27; Temp 97.6(TE); Pulse Ox 100% on BiPAP; Weight 83.91 df1 kg; Height 6 ft. 0 in. (182.88 cm); Pain 0/10; 02:00 BP 188 / 129; Pulse 117; Resp 32; Pulse Ox 98% on 35% BiPAP; cc4 02:20 BP 172 / 116; Pulse 116; Resp 39; Pulse Ox 97% on 35% BiPAP; cc4 02:34 BP 180 / 123; Pulse 107; Resp 30; Pulse Ox 100% on BiPAP; Pain 0/10; df1 03:00 BP 175 / 136; Pulse 94; Resp 24; Pulse Ox 100% on BiPAP; Pain 0/10; df1 04:00 BP 180 / 116; Pulse 94; Resp 22; Pulse Ox 100% on BiPAP; df1 05:00 BP 176 / 122; Pulse 90; Resp 22; Pulse Ox 100% on BiPAP; df1 02:00 Body Mass Index 25.09 (83.91 kg, 182.88 cm) df1 MDM: 02:12 Patient medically screened. jr8 02:14 Data reviewed: vital signs, nurses notes, lab test result(s), EKG, radiologic studies, jr8 plain films. Data interpreted: Pulse oximetry: on BiPAP is 100 %. Interpretation: acceptable. Counseling: I had a detailed discussion with the patient and/or guardian regarding: the historical points, exam findings, and any diagnostic results supporting the discharge/admit diagnosis, lab results, radiology results, the need for further work-up and treatment in the hospital. 02:50 ED course: Originally patient's EKG showed inferior wall infarction with reciprocal jr8 changes in the lateral leads. After patient stabilized with ongoing treatment patient's EKG normalized and now just shows left ventricular hypertrophy with some strain. Discussed case and showed EKGs to our validation software facilitator who agrees. We will admit patient to ICU and continue nitro drip and BiPAP.. 02/05 01:58 Order name: ABG lp1 02/05 02:11 Order name: Basic Metabolic Panel cc4 02/05 02:11 Order name: CBC with Diff cc4 02/05 02:11 Order name: LFT's cc4 12/02 02:11 Order name: Magnesium; Complete Time: 02:53 cc4 02/05 02:11 Order name: NT PRO-BNP; Complete Time: 02:53 cc4 02/05 02:11 Order name: PT-INR; Complete Time: 02:53 cc4 02/05 02:11 Order name: Troponin (emerg Dept Use Only); Complete Time: 02:53 cc4 02/05 02:11 Order name: Basic Metabolic Panel; Complete Time: 02:53 EDMS 02/05 02:11 Order name: CBC with Automated Diff; Complete Time: 02:53 EDMS 02/05 02:12 Order name: Liver (Hepatic) Function; Complete Time: 02:53 EDMS 02/05 02:13 Order name: ABG; Complete Time: 02:24 jr8 02/05 02:50 Order name: Urine Dipstick-Ancillary; Complete Time: 02:53 EDMS 02/05 03:07 Order name: COVID-19/FLU A+B; Complete Time: 06:17 EDMS 02/05 06:59 Order name: Troponin I; Complete Time: 15:11 EDMS 02/05 07:36 Order name: Glucose, Ancillary Testing; Complete Time: 15:11 EDMS 02/05 10:45 Order name: Troponin I; Complete Time: 15:11 EDMS 02/05 11:59 Order name: Glucose, Ancillary Testing; Complete Time: 15:11 EDMS 02/05 18:37 Order name: Glucose, Ancillary Testing; Complete Time: 18:43 EDMS 02/05 21:36 Order name: Glucose, Ancillary Testing; Complete Time: 21:37 EDMS 02/06 03:56 Order name: CBC with Automated Diff EDMS 02/06 04:21 Order name: Hemoglobin A1c EDMS 02/06 04:50 Order name: Comprehensive Metabolic Panel EDMS 02/06 04:50 Order name: Phosphorus EDMS 02/06 04:50 Order name: Lipid Profile EDMS 02/06 04:50 Order name: T4 Free EDMS 02/06 04:50 Order name: Magnesium EDMS 02/06 04:50 Order name: Thyroid Stimulating Hormone EDMS 02/05 01:51 Order name: XRAY Chest (1 view); Complete Time: 15:11 lp1 02/05 01:58 Order name: BIPAP lp1 02/05 02:11 Order name: EKG; Complete Time: 02:12 cc4 02/05 02:11 Order name: Cardiac monitoring; Complete Time: 02:11 cc4 02/05 02:11 Order name: EKG - Nurse/Tech; Complete Time: 02:11 cc4 02/05 02:11 Order name: IV Saline Lock; Complete Time: 02:11 cc4 02/05 02:11 Order name: Labs collected and sent; Complete Time: 02:11 cc4 02/05 02:11 Order name: O2 Per Protocol; Complete Time: 02:11 cc4 02/05 02:11 Order name: O2 Sat Monitoring; Complete Time: 02:11 cc4 02/05 02:13 Order name: BIPAP jr8 02/05 03:19 Order name: CONS Physician Consult EDMS 02/06 04:50 Order name: Transferrin Sat/Iron Binding EDMS 02/06 04:50 Order name: Ferritin EDMS 02/06 04:50 Order name: Folic Acid, (Folate) EDMS 02/06 04:50 Order name: Vitamin B12 Level EDMS 02/06 07:52 Order name: Glucose, Ancillary Testing EDMS 02/06 11:59 Order name: Glucose, Ancillary Testing EDMS 02/06 17:28 Order name: Glucose, Ancillary Testing EDMS EC:14 Rate is 117 beats/min. Rhythm is regular, Sinus tachycardia. QRS Marty is Normal. CO jr8 interval is normal. QRS interval is normal at 80 msec. QT interval is prolonged at 471 msec. No Q waves. T waves are Inverted in lead V6. T waves are Flattened in leads II, aVF. ST Segment is elevated in leads III, aVF, 1-2mm. ST Segment is depressed in leads aVL, V5, V6, 1-2mm. Clinical impression: Inferior AL - acute. Interpreted by me. Reviewed by me. 02:49 Rate is 105 beats/min. Rhythm is regular, Sinus tachycardia. QRS Marty is Normal. CO jr8 interval is normal at 146 msec. QRS interval is normal at 90 msec. QT interval is prolonged at 507 msec. No Q waves. T waves are Inverted in leads V5, V6. T waves are Flattened in leads II, aVL, aVF. ST Segment is depressed in lead V5, 1-2mm. Clinical impression: LV Strain and LVH. Interpreted by me. Reviewed by me. Administered Medications: 02:15 Drug: Heparin (AL-Bolus with thrombolytic) - HEParin 60 units/kg {Co-Signature: cc4 df1 (Debo Lomax RN).} Route: IVP; Site: left hand; 11:11 Follow up: Response: No adverse reaction ll1 02:16 Drug: Heparin (AL Drip) 12 units/kg/hr - (HEParin 07497 units, D5W 500 ml) df1 {Co-Signature: cc4 (Debo Lomax RN).} Route: IV; Rate: calculated rate; Site: left hand; 11:11 Follow up: Response: No adverse reaction; IV Status: Order to discontinue infusion ll1 02:17 Drug: Lasix (furosemide) 80 mg Route: IVP; Site: left antecubital; df1 11:08 Follow up: Response: No adverse reaction ll1 02:17 Drug: morphine 2 mg Route: IVP; Site: left antecubital; df1 11:08 Follow up: Response: No adverse reaction ll1 02:18 Drug: Aspirin Chewable Tablet 324 mg Route: PO; df1 11:10 Follow up: Response: No adverse reaction ll1 02:19 Drug: Lasix (furosemide) 80 mg Route: IVP; Site: left antecubital; df1 11:10 Follow up: Response: No adverse reaction ll1 02:19 Drug: Nitro Drip - (Nitroglycerin 50 mg, D5W 250 ml) Route: IV; Rate: 5 mcg/min; Site: df1 left hand; 05:34 Follow up: Response: No adverse reaction; IV Status: Infusion continued ll1 Disposition: 06:17 Co-signature as Attending Physician, Jaron Butterfield MD. pkl Disposition Summary: 02/05/21 02:52 Hospitalization Ordered Hospitalization Status: Inpatient Admission jr8 Provider: Leonel Valentin jr8 Condition: Fair jr8 Problem: new jr8 Symptoms: have improved jr8 Bed/Room Type: [facility] Location: Telemetry/MedSurg (Inpatient)(02/06/21 16:32) eb Room Assignment: 220(02/06/21 16:32) eb Diagnosis - Acute systolic (congestive) heart failure jr8 - Hypertensive emergency jr8 - Abnormal electrocardiogram [ECG] [EKG] jr8 Forms: - Medication Reconciliation Form jr8 - SBAR form jr8 Signatures: Dispatcher [employer] EDAR Jaron Butterfield MD MD pkl Alyssia Fierro RN RN Zion Dunn PA PA jr8 Coni Rodrigues Emily RN RN eb1 Debo Lomax RN RN cc4 Hali Wick df1 Arden Slade RN 1 Debo Lomax RN cc4 Corrections: (The following items were deleted from the chart) 02:16 02:12 Chest Single View+[email or web address].[email or web address] ordered. EDAR EDMS 02:22 01:58 ABG Arterial Blood Gas ordered. EDAR EDMS 02:51 02:14 Counseling: I had a detailed discussion with the patient and/or guardian jr8 regarding: the historical points, exam findings, and any diagnostic results supporting the discharge/admit diagnosis, lab results, radiology results, the need to transfer to another facility, [facility] does not immediately have the required specialist, [facility] 03:40 02:52 Intensive Care Unit [facility] eb1 03:40 02:52 [facility] eb1 1203 16:32 12/02 03:40 [facility] ER HOLD eb1 eb 12 16:32 1202 03:40 ERHOLD- eb1 eb
--- NOTE | 2021-02-05 02:53 | ER ---
Nurse's Notes [facility] Name: Vlad Hart Age: 65 yrs Sex: Male : 1955 Arrival Date: 02/05/2021 Time: 01:49 Bed 5 Private MD: Diagnosis: Acute systolic (congestive) heart failure;Hypertensive emergency;Abnormal electrocardiogram [ECG] [EKG] Presentation: 12 01:49 Acuity: ARIADNA 1 lp1 02:00 Chief complaint: Patient states: SOB x 1 hour [employer]CR[employer]W [employer]. Coronavirus screen: Vaccine status: df1 Patient reports being unvaccinated. Client denies travel out of the [place] in the last 14 days. At this time, the client does not indicate any symptoms associated with coronavirus-19. Ebola Screen: Patient negative for fever greater than or equal to 101.5 degrees Fahrenheit, and additional compatible Ebola Virus Disease symptoms Patient denies exposure to infectious person. Patient denies travel to an Ebola-affected area in the 21 days before illness onset. Initial Sepsis Screen: Does the patient meet any 2 criteria? RR > 20 per min. HR > 90 bpm. Yes Does the patient have a suspected source of infection? No. Patient's initial sepsis screen is negative. Risk Assessment: Do you want to hurt yourself or someone else? Patient reports no desire to harm self or others. Onset of symptoms was February 05, 2021 at 01:00. 02:00 Method Of Arrival: EMS: [facility] df1 02:54 Note 1st Troponin negative. Per provider, Heparin gtt DC'D. df1 Triage Assessment: 02:02 General: Appears distressed, uncomfortable, ill, Behavior is anxious. Pain: Denies df1 pain. Respiratory: Reports shortness of breath at rest air hunger Onset: The symptoms/episode began/occurred suddenly, the patient has severe shortness of breath. Historical: - Allergies: 02:02 No Known Allergies; df1 - Home Meds: 02:02 Unknown HTN med [Active]; df1 - PMHx: 02:02 asbestosis; Hypertension; df1 - PSHx: 02:02 None; df1 - Immunization history:: Adult Immunizations not up to date. - Social history:: Smoking status: Patient reports the use of cigarette tobacco products, smokes one pack cigarettes per day. Patient uses alcohol, occasionally. Patient/guardian denies using street drugs. Screenin:32 Abuse screen: Denies threats or abuse. Nutritional screening: No deficits noted. df1 Tuberculosis screening: No symptoms or risk factors identified. Fall Risk None identified. Assessment: 02:28 Reassessment: per pt request called daughter Brittney Saldana [phone] and left message that bb pt was in the ED and she should call back. 02:29 General: Appears distressed, uncomfortable, ill, Behavior is cooperative, anxious, df1 restless. Pain: Denies pain. Neuro: No deficits noted. Cardiovascular: Rhythm is sinus tachycardia Chest pain is denied. Respiratory: Airway is patent Trachea midline Respiratory effort is labored, Respiratory pattern is symmetrical, tachypnea Sputum is thick, Patient placed on BiPAP: Inspiratory Pressure: 12 Expiratory (EPAP) Pressure: 6 FiO2%: 35 Respiratory Rate: 14 Breath sounds with crackles bilaterally. Breath sounds with rhonchi bilaterally. the patient has severe shortness of breath. GI: No deficits noted. : No deficits noted. EENT: No deficits noted. Musculoskeletal: No deficits noted. Vital Signs: 01:44 BP 218 / 135; Pulse 96; Resp 37 S; Temp 97.8(TE); Pulse Ox 88% on Non-rebreather mask; cc4 Weight 83.91 kg; Height 6 ft. 0 in. (182.88 cm); 01:45 BP 204 / 130; Pulse 91; Resp 36; Pulse Ox 89% on BiPAP; cc4 02:00 BP 204 / 130; Pulse 117; Resp 27; Temp 97.6(TE); Pulse Ox 100% on BiPAP; Weight 83.91 df1 kg; Height 6 ft. 0 in. (182.88 cm); Pain 0/10; 02:00 BP 188 / 129; Pulse 117; Resp 32; Pulse Ox 98% on 35% BiPAP; cc4 02:20 BP 172 / 116; Pulse 116; Resp 39; Pulse Ox 97% on 35% BiPAP; cc4 02:34 BP 180 / 123; Pulse 107; Resp 30; Pulse Ox 100% on BiPAP; Pain 0/10; df1 03:00 BP 175 / 136; Pulse 94; Resp 24; Pulse Ox 100% on BiPAP; Pain 0/10; df1 04:00 BP 180 / 116; Pulse 94; Resp 22; Pulse Ox 100% on BiPAP; df1 05:00 BP 176 / 122; Pulse 90; Resp 22; Pulse Ox 100% on BiPAP; df1 02:00 Body Mass Index 25.09 (83.91 kg, 182.88 cm) df1 ED Course: 01:49 Patient arrived in ED. lp1 01:49 Triage completed. lp1 02:00 Hali Wick is Primary Nurse. df1 02:02 Arm band placed on right wrist. EKG completed in triage. Results shown to MD. df1 02:11 ABG Sent. cc4 02:11 BIPAP Sent. cc4 02:11 XRAY Chest (1 view) Sent. cc4 02:12 Zion Chavez PA is PHCP. jr8 02:12 Jaron Butterfield MD is Attending Physician. jr8 02:15 Troponin (emerg Dept Use Only) Sent. df1 02:15 PT-INR Sent. df1 02:15 NT PRO-BNP Sent. df1 02:15 Magnesium Sent. df1 02:15 LFT's Sent. df1 02:15 CBC with Diff Sent. df1 02:15 Basic Metabolic Panel Sent. df1 02:15 Liver (Hepatic) Function Sent. df1 02:15 CBC with Automated Diff Sent. df1 02:15 Basic Metabolic Panel Sent. df1 02:16 XRAY Chest (1 view) In Process Unspecified. EDMS 02:19 BIPAP Sent. df1 02:32 Patient has correct armband on for positive identification. Placed in gown. Bed in low df1 position. Call light in reach. Side rails up X 1. Side rails up X2. nuclear monitoring technician on. Pulse ox on. NIBP on. 02:33 No provider procedures requiring assistance completed. Inserted saline lock: 20 gauge df1 in left hand, using aseptic technique. Maintain EMS IV. Dressing intact. Good blood return noted. Site clean \T\ dry. Gauge \T\ site: 20 L AC. 02:51 Leonel Valentin is Hospitalizing Provider. jr8 05:34 Patient admitted, IV remains in place. df1 07:34 Glucose check 127. cs9 11:48 Glucose check 106. cs9 12 07:33 Glucose check 126. cs9 11:47 Glucose check 109. cs9 Administered Medications: 02/05 02:15 Drug: Heparin (MD-Bolus with thrombolytic) - HEParin 60 units/kg {Co-Signature: cc4 df1 (Debo Lomax RN).} Route: IVP; Site: left hand; 11:11 Follow up: Response: No adverse reaction ll1 02:16 Drug: Heparin (MD Drip) 12 units/kg/hr - (HEParin 11773 units, D5W 500 ml) df1 {Co-Signature: cc4 (Debo Lomax RN).} Route: IV; Rate: calculated rate; Site: left hand; 11:11 Follow up: Response: No adverse reaction; IV Status: Order to discontinue infusion ll1 02:17 Drug: Lasix (furosemide) 80 mg Route: IVP; Site: left antecubital; df1 11:08 Follow up: Response: No adverse reaction ll1 02:17 Drug: morphine 2 mg Route: IVP; Site: left antecubital; df1 11:08 Follow up: Response: No adverse reaction ll1 02:18 Drug: Aspirin Chewable Tablet 324 mg Route: PO; df1 11:10 Follow up: Response: No adverse reaction ll1 02:19 Drug: Lasix (furosemide) 80 mg Route: IVP; Site: left antecubital; df1 11:10 Follow up: Response: No adverse reaction ll1 02:19 Drug: Nitro Drip - (Nitroglycerin 50 mg, D5W 250 ml) Route: IV; Rate: 5 mcg/min; Site: df1 left hand; 05:34 Follow up: Response: No adverse reaction; IV Status: Infusion continued ll1 Outcome: 02:52 Decision to Hospitalize by Provider. jr8 05:34 Admitted to ICU accompanied by nurse. df1 05:34 Condition: improved 05:34 Instructed on the need for admit. 02/06 17:56 Patient left the ED. iw Signatures: Dispatcher [employer] EDMS Alyssia Fierro RN RN bb Brooke Roper RN RN iw Doreen Thurman RN RN lp1 Zion Chavez PA PA jr8 Arden Slade RN RN ll1 Debo Lomax RN RN cc4 Hali Wick df1 Livier Mullen cs9 Debo Lomax RN cc4 Corrections: (The following items were deleted from the chart) 02/05 02:16 02:15 To radiology for Chest Single View+[id number].[id number]. df1 EDMS
[2021-02-05 03:47] LABS: SARS-COV-2 RT PCR NEGATIVE (NEGATIVE)
--- NOTE | 2021-02-05 03:57 | P.HP ---
Certification for Inpatient Patient admitted to: Inpatient With expected LOS: >2 Midnights Patient will require the following post-hospital care: None Practitioner: I am a practitioner with admitting privileges, knowledge of patient current condition, hospital course, and medical plan of care. Services: Services provided to patient in accordance with Admission requirements found in Title 42 Section 412.3 of the Code of Federal Regulations Patient History Date of Service: 02/05/21 Primary Care Provider: Lauren Reason for admission: acute chf exacerbation History of Present Illness: Mr. Hart is a 65 yo M with HTN who presents with sudden onset SOB tonight. EMS was called, and his room air sats were 86%, BP 218/135 and tachycardic to the 140s. He was placed on BIPAP and started on a nitroglycerin drip in the ED. He says his SOB and LORA have been worsening for the past few days. He reports orthopnea, PND, edema, wheezing, cough. No known history of CHF or diabetes. H/H 9.7 BUN 20 Cr 1.85 GFR 45 Glu 255 BNP 17579. Allergies No Known Allergies Allergy (Unverified 08/27/17 02:04) - Past Medical/Surgical History Diabetic: No -: HTN Past Surgical History: Patient denies surgical history - Family History Family History: Reviewed- Non-Contributory - Social History Smoking Status: Current every day smoker Alcohol use: Yes CD- Drugs: No Caffeine use: Yes Place of Residence: Home Review of Systems 10-point ROS is otherwise unremarkable General: Unremarkable Eyes: Unremarkable ENT: Unremarkable Respiratory: Cough, Shortness of Breath, SOB with Excertion, Wheezing, As per HPI Cardiovascular: Orthopnea, Paroxysmal Noc. Dyspnea, Edema, As per HPI Gastrointestinal: Unremarkable Genitourinary: Unremarkable Musculoskeletal: Unremarkable Integumentary: Unremarkable Neurological: Unremarkable Lymphatics: Unremarkable Physical Examination - Physical Exam General: Alert, Mild distress HEENT: Atraumatic, PERRLA, Mucous membr. moist/pink, EOMI, Sclerae nonicteric Neck: Supple, 2+ carotid pulse no bruit, No LAD, Without JVD or thyroid abnormality Respiratory: Diminished, Crackles/rales Cardiovascular: Regular rate/rhythm, Normal S1 S2, Edema Gastrointestinal: Normal bowel sounds, No tenderness Musculoskeletal: No tenderness Integumentary: No rashes Neurological: Normal speech, Normal strength at 5/5 x4 extr, Normal tone, Normal affect Lymphatics: No axilla or inguinal lymphadenopathy - Studies Laboratory Data (last 24 hrs) 02/05/21 00:55: PT 14.4 H, INR 1.25 02/05/21 00:55: WBC 7.90, Hgb 9.7 L, Hct 32.7 L, Plt Count 315 02/05/21 00:55: Sodium 140, Potassium 3.7, BUN 20 H, Creatinine 1.85 H, Glucose 255 H, Magnesium 2.5 H, Total Bilirubin 0.7, AST 86 H, ALT 57, Alkaline Phosphatase 87 Assessment and Plan - Problems (Diagnosis) (1) New onset of congestive heart failure Current Visit: Yes Status: Acute (2) Respiratory distress Current Visit: Yes Status: Acute (3) Prerenal acute renal failure Current Visit: Yes Status: Acute (4) Anemia Current Visit: Yes Status: Chronic Qualifiers: Anemia type: unspecified type Qualified Code(s): D64.9 - Anemia, unspecified (5) Hyperglycemia Current Visit: Yes Status: Acute (6) Tobacco use disorder Current Visit: Yes Status: Chronic - Plan cardiology consulted, repeat EKG, trend troponins continue BIPAP, RT consulted, repeat ABG continue IV nitroglycerin drip, titrate to SBP of 160 continue IV Lasix every 8 hours fluid restrict 1500 cc daily, daily weights, low sodium diet daily ASA, lipid and thyroid profile pending ECHO pending anemia workup pending A1c pending, sliding scale insulin and accuchecks breathing treatments as needed hydralazine PRN for BP spikes reconcile and continue home medications DVT ppx Discharge Plan: Home Plan to discharge in: 72 Hours - Advance Directives Does patient have a Living Will: No Does patient have a Durable POA for Healthcare: No - Code Status/Comfort Care Code Status Assessed: Yes (full code ) Critical Care: Yes Time Spent Managing Pts Care (In Minutes): 70
[2021-02-05] MEDS ORDERED: ONDANSETRON 4 MG/2 ML VIAL IV PRN (05:36)
[2021-02-05] MEDS ORDERED: IPRATROPIUM BROM 0.5MG/2.5ML NEB PRN (05:36)
[2021-02-05] MEDS ORDERED: HYDRALAZINE HCL 20 MG/ML VIAL IV PRN (05:36)
[2021-02-05] MEDS ORDERED: MORPHINE 2 MG/ML SYR IV PRN (05:36)
[2021-02-05 05:39] VITALS: BMI 25.0
[2021-02-05] MEDS ORDERED: ALBUTEROL 2.5 MG/3 ML NEB SOL NEB PRN (05:40)
[2021-02-05] MEDS ORDERED: HYDRALAZINE HCL 20 MG/ML VIAL ONE ×2 (05:42→15:46)
[2021-02-05] MEDS ORDERED: POTASSIUM CL SA 10 MEQ TAB PO ONE ×3 (06:52→08:26)
[2021-02-05] MEDS: NITROGLYCERIN/D5W 50 MG/250 ML BTL IV SCH ×3 (07:00→12:34)
[2021-02-05] MEDS: INSULIN -REGULAR HUMAN 50 UNIT/0.5 ML ML SQ SCH ×4 (07:30→21:00)
[2021-02-05] MEDS ORDERED: FUROSEMIDE 40 MG/4 ML VIAL ONE ×2 (07:45→18:14)
[2021-02-05] MEDS ORDERED: ASPIRIN EC 81 MG TAB PO ONE (07:45)
--- NOTE | 2021-02-05 08:03 | RAD REPORT ---
EXAM DESCRIPTION: RAD - Chest Single View - 02/05/2021 2:16 am CLINICAL HISTORY: SOB COMPARISON: None TECHNIQUE: AP portable chest image was obtained 02/05/2021 2:16 am . FINDINGS: Interstitial markings are diffusely prominent. Cardiomegaly and vascular engorgement are p resent. Small left greater than right pleural effusions are present. No pneumothorax. Trachea is midl ine. No acute bony abnormality seen. No acute aortic findings suspected. IMPRESSION: Mild to moderate CHF/ volume overload pattern.
[2021-02-05] MEDS: ASPIRIN EC 81 MG TAB PO SCH (08:35)
[2021-02-05] MEDS: HEPARIN 5000 UNIT/ML 1 ML VIAL SQ SCH ×2 (08:36→12:39)
[2021-02-05] MEDS: FUROSEMIDE 40 MG/4 ML VIAL IV SCH ×2 (10:00→17:00)
[2021-02-05] MEDS ORDERED: ENOXAPARIN 80 MG/0.8 ML SQ SCH (11:01)
[2021-02-05] MEDS ORDERED: HEPA 1000U/500MLS 2,000 UNIT/1,000 ML BAG IV ONE (14:28)
[2021-02-05] MEDS ORDERED: LIDOCAINE 1% 20 ML MDV ONE (14:28)
[2021-02-05] MEDS ORDERED: VERAPAMIL HCL 10 MG/4 ML VIAL IV ONE (14:28)
[2021-02-05] MEDS ORDERED: ATROPINE SULF 1 MG/10 ML SYR IV ONE (14:29)
[2021-02-05] MEDS ORDERED: NITROGLYCERIN/D5W 25 MG/250 ML BTL IV ONE (14:29)
[2021-02-05] MEDS ORDERED: NITROGLYCERIN 100 MCG/ML SYR (for cath lab use only) IV ONE (14:29)
--- NOTE | 2021-02-05 14:48 | ECHO ---
HEIGHT: 6 ft 0 in WEIGHT: 185 lb 0 oz DATE OF STUDY: 02/05/[address]: Isidro Webb 2-DIMENSIONAL: YES M.MODE: YES DOPPLER: YES COLOR FLOW: YES TDS: PORTABLE: DEFINITY: BUBBLE STUDY: DIAGNOSIS: CONGESTIVE HEART FAILURE CARDIAC HISTORY: CATHERIZATION: SURGERY: PROSTHETIC VALVE: PACEMAKER: MEASUREMENTS (cm) DIASTOLIC (NORMALS) SYSTOLIC (NORMALS) IVSd 1.3 (0.6-1.2) LA Diam 5.3 (1.9-4.0) LVEF 35-40% LVIDd 6.2 (3.5-5.7) LVIDs 5.2 (2.0-3.5) %FS 16% LVPWd 1.4 (0.6-1.2) Ao Diam 3.0 (2.0-3.7) 2 DIMENSIONAL ASSESSMENT: RIGHT ATRIUM: NORMAL LEFT ATRIUM: NORMAL RIGHT VENTRICLE: NORMAL LEFT VENTRICLE: DEPRESSED TRICUSPID VALVE: NORMAL MITRAL VALVE: MILD MITRAL REGURGITATION PULMONIC VALVE: NORMAL AORTIC VALVE: NORMAL PERICARDIAL EFFUSION: NONE AORTIC ROOT: NORMAL LEFT VENTRICULAR WALL MOTION: MILD GLOBAL HYPOKINESIS. SEVERE INFERIOR HYPOKINESIS DOPPLER/COLOR FLOW: SEE BELOW COMMENTS: MODERATELY DEPRESSED LEFT VENTRICULAR EJECTION FRACTION 35-40% WITH WALL MOTION ABNORMALITIES OR AKINESIS. MILD MITRAL REGURGITATION. TECHNOLOGIST: ERICKA PORRAS
[2021-02-05] MEDS ORDERED: NA CHLORIDE 0.9% 500 ML ONE (15:24)
[2021-02-05] MEDS ORDERED: FENTANYL CITR 100 MCG/2 ML ONE (15:40)
[2021-02-05] MEDS ORDERED: MIDAZOLAM HCL 2 MG/2 ML INJ ONE (15:40)
[2021-02-05] MEDS ORDERED: METOPROLOL TARTRATE 5 MG/5 ML INJ IV ONE (15:41)
--- NOTE | 2021-02-05 17:47 | P.PN ---
Date of Service: 02/05/21 Patient seen and examined. He states he feels much better. He has been weaned off BiPAP to room air He appears to be compensated for CHF. Troponin trended up to 6 Diagnosis: NSTEMI New onset CHF. Malignant hypertension. Plan: Patient seen by cardiology-Dr. Ivy and cardiac catheterization performed. He is noted to have clean coronary arteries. Echocardiogram shows EF of 35 to 40% with left inferior wall akinesia. Continue nitroglycerin drip to treat malignant hypertension. Start Entresto per cardiology recommendation. Add amlodipine and Coreg for heart failure and blood pressure control. Aspirin and Plavix. IV Lasix. Monitor intake and output. Increase activity as tolerated.
--- NOTE | 2021-02-05 19:12 | CON ---
Date of Consultation: 02/05/2021 Reason For Consultation: Congestive heart failure and elevated troponin. History Of Present Illness: A 65-year-old male with history of heart failure, presents with shortnes s of breath, orthopnea, and minimal activities for bring on the symptoms. Denies having any chest pa in. Patient also subsequently required BiPAP. At the time of my evaluation was lying flat and comfo rtable. Past Medical History: As outlined above in the HPI. Hypertension mainly and congestive heart failur e. Medications: Refer reconciliation sheet for detailed list. Allergies: NO KNOWN DRUG ALLERGIES. Family History: No premature coronary disease, cancer. Social History: He is a smoker, a pack per day and drinks heavily. Review of Systems: All systems reviewed and they were negative except for mentioned in the HPI. Physical Examination: Vital Signs: Temperature is 97.7, pulse is 98, breathing at 19, blood pressure is 153/93, saturating 100%. General: Pleasant middle-aged male, in no apparent distress. Head and neck: Pupils are reactive to light equally. Lungs: No accessory muscle use or muscle retraction. Heart: Irregular irregular, no extra sounds. Abdomen: Soft, nontender. Bowel sounds positive. No organomegaly. No sinus rebound. Extremities: No clubbing, cyanosis. Intact pulses. Skin: No rash was noted. Neurologic: Alert, oriented x3. No acute focal deficits appreciated. Investigations: Hemoglobin 9.7. Troponin peaked at 6.72. Creatinine is 1.85, used to be 1.6 about 3 years ago. Assessment And Recommendation: 1.Non-ST elevation myocardial infarction. The patient was kept n.p.o. since morning hours. We will proceed with coronary angiogram today. 2.Congestive heart failure, acute on chronic systolic congestive heart failure with low ejection fra ction and wall motion abnormalities by echo taken back. 3.Coronary angiogram and continue IV diuretics with Lasix 40 mg IV q.8 hours. Carefully monitor BUN , creatinine, electrolytes. Thank you for the consult. /JAVIER Voice ID: [id number] Report ID: [id number]
--- NOTE | 2021-02-05 19:45 | OP ---
Date of Procedure: 02/05/2021 Surgeon: ARACELI ZUNIGA Procedure: Selective coronary angiogram. Indication: 1.Non-ST elevation myocardial infarction. 2.New onset severe systolic heart failure. Access: Right femoral artery 6-Malawian closed with StarClose. Complications: None. Total Amount Of Contrast Used: 30 cc. Description Of Procedure: After risks, benefits, and alternatives were explained, including worsenin g kidney function and possible dialysis requirement, he agreed to the procedure and signed informed c onsent. Patient was brought into the cardiac catheterization laboratory, prepped and draped in usual sterile fashion. Then accessed the right femoral artery using ultrasound guidance and fluoroscopy a nd then micropuncture kit placed with 6-Malawian Nettleton sheath and took a 6-Malawian JL4 catheter into the aortic root, engaged left main, took standard views and then exchanged for a 6-Malawian JR4 cathete r, engaged the RCA, took standard views and then removed the catheter and sheath, and the site was cl osed using StarClose with good hemostasis. Findings: 1.Left main is large and normal. 2.LAD large, normal. All diagonal branches are normal. 3.Left circumflex, large, dominant and normal. 4.RCA, small nondominant and normal. Conclusion: Normal coronary arteries, likely hypertensive emergency with acute heart failure due to that. Plan: Aggressive blood pressure control and IV diuresis. SR/MODL Voice ID: [id number] Report ID: [id number]
[2021-02-05] MEDS: carvediloL 25 MG TAB PO SCH (21:00)
[2021-02-05] MEDS: SACUBITRIL/VALSARTAN 24/26 MG TAB PO SCH (21:00)
[2021-02-05] MEDS: ACETAMINOPHEN 500 MG TAB PO PRN (21:20)
[2021-02-05] MEDS ORDERED: ACETAMINOPHEN 500 MG TAB ONE (21:21)
[2021-02-06] MEDS: FUROSEMIDE 40 MG/4 ML VIAL IV SCH ×3 (01:00→17:00)
[2021-02-06] MEDS: HEPARIN 5000 UNIT/ML 1 ML VIAL SQ SCH ×3 (01:00→17:00)
[2021-02-06] MEDS ORDERED: HYDRALAZINE HCL 20 MG/ML VIAL IV PRN (01:40)
[2021-02-06] MEDS ORDERED: FUROSEMIDE 40 MG/4 ML VIAL ONE ×3 (01:42→17:20)
[2021-02-06 03:54] LABS: Absolute Lymphocytes (CBC) 0.5 K/uL (0.7-4.9); Basophils % 1.1 % (0-1.3); Hematocrit 31.4 % (39.6-49.0); Lymphocytes % 5.1 % (15.3-44.8); MPV 8.1 fL (7.6-11.3); RBC Red Blood Cell Count 3.85 M/uL (4.33-5.43)
[2021-02-06 04:34] LABS: Albumin 2.8 g/dL (3.4-5.0); Bilirubin Total 0.8 mg/dL (0.2-1.0); Ferritin 83.5 ng/mL (26-388); Magnesium 1.9 mg/dL (1.8-2.4); Phosphorus 3.3 mg/dL (2.5-4.9); Potassium 3.6 mmol/L (3.5-5.1); Protein, Total 8.5 g/dL (6.4-8.2); Thyroid Stimulating Hormone 1.18 uIU/mL (0.360-3.740)
[2021-02-06] MEDS ORDERED: POTASSIUM CL SA 10 MEQ TAB PO ONE ×2 (04:58→06:17)
[2021-02-06] MEDS: carvediloL 25 MG TAB PO SCH ×2 (06:00→18:28)
[2021-02-06] MEDS: INSULIN -REGULAR HUMAN 50 UNIT/0.5 ML ML SQ SCH ×4 (07:30→19:57)
[2021-02-06] MEDS ORDERED: PNEUMOCOCCAL VACCINE 0.5 ML IMVAC ONE ×2 (08:00→09:27)
[2021-02-06] MEDS ORDERED: ACETAMINOPHEN 500 MG TAB ONE (08:21)
[2021-02-06] MEDS: ACETAMINOPHEN 500 MG TAB PO PRN (08:24)
[2021-02-06] MEDS: ASPIRIN EC 81 MG TAB PO SCH (09:00)
[2021-02-06] MEDS: AMLODIPINE 10 MG TAB PO SCH (09:00)
[2021-02-06] MEDS: SACUBITRIL/VALSARTAN 24/26 MG TAB PO SCH ×2 (09:00→20:37)
[2021-02-06] MEDS ORDERED: CLOPIDOGREL 75 MG TABLET PO SCH (09:00)
[2021-02-06] MEDS ORDERED: HEPARIN 5000 UNIT/ML 1 ML VIAL ONE (09:25)
[2021-02-06] MEDS ORDERED: ASPIRIN EC 81 MG TAB PO ONE (09:26)
[2021-02-06] MEDS ORDERED: CLOPIDOGREL 75 MG TABLET ONE (09:26)
[2021-02-06] MEDS ORDERED: AMLODIPINE 10 MG TAB ONE (09:26)
[2021-02-06] MEDS ORDERED: ENOXAPARIN 80 MG/0.8 ML SQ ONE (09:27)
[2021-02-06] MEDS ORDERED: MAGNES/ALUMIN/SIMET 30ML UCUP PO PRN (12:11)
[2021-02-06] MEDS: PANTOPRAZOLE 40MG TABLET PO SCH ×2 (12:12→16:30)
--- NOTE | 2021-02-06 17:18 | P.PN ---
Subjective Date of Service: 02/06/21 Primary Care Provider: Lauren Chief Complaint: acute chf exacerbation Patient states he feels much better today. He denies shortness of breath. Blood pressure has improved and NTG drip weaned off. Physical Examination - Vital Signs Temperature: 97.8 F Blood Pressure: 135/99 Pulse: 72 Respirations: 17 Pulse Ox (%): 100 - Physical Exam General: Alert, In no apparent distress, Oriented x3 HEENT: Mucous membr. moist/pink Neck: JVD not distended Respiratory: Clear to auscultation bilaterally, Normal air movement Cardiovascular: No edema, Regular rate/rhythm, Normal S1 S2, No murmurs Capillary refill: <2 Seconds Gastrointestinal: Soft and benign, Non-distended, No tenderness Musculoskeletal: No swelling, No tenderness Integumentary: No rashes, No erythema Neurological: Normal speech, Normal strength at 5/5 x4 extr Assessment And Plan - Current Problems (Diagnosis) (1) NSTEMI (non-ST elevated myocardial infarction) Current Visit: Yes Status: Acute (2) Malignant hypertension Current Visit: Yes Status: Acute (3) Acute systolic heart failure Current Visit: Yes Status: Acute (4) Acute respiratory failure with hypoxia Current Visit: Yes Status: Acute (5) Tobacco use disorder Current Visit: Yes Status: Chronic - Plan Status post cardiac catheterization. Patient found to have normal coronary arteries. Patient appears compensated for CHF now. Nitroglycerin drip weaned off. Patient started on amlodipine for blood pressure control. Transition to oral Lasix. Cardiology input appreciated. Planning to discharge in a.m. if his blood pressure remained stable. Patient started on Entresto, and Coreg.
[2021-02-06] MEDS ORDERED: PANTOPRAZOLE 40MG TABLET PO ONE (17:19)
[2021-02-07] MEDS: FUROSEMIDE 40 MG/4 ML VIAL IV SCH ×2 (00:39→09:00)
[2021-02-07 01:52] VITALS: O2SAT 94
[2021-02-07] MEDS: carvediloL 25 MG TAB PO SCH (05:25)
[2021-02-07 06:13] LABS: Basophils % 1.1 % (0-1.3); Lymphocytes % 8.7 % (15.3-44.8); MPV 9.2 fL (7.6-11.3)
[2021-02-07 06:37] LABS: Albumin 2.3 g/dL (3.4-5.0); Bilirubin Total 0.8 mg/dL (0.2-1.0); Phosphorus 3.4 mg/dL (2.5-4.9); Protein, Total 7.6 g/dL (6.4-8.2)
[2021-02-07] MEDS: INSULIN -REGULAR HUMAN 50 UNIT/0.5 ML ML SQ SCH ×2 (07:30→11:30)
[2021-02-07] MEDS: SACUBITRIL/VALSARTAN 24/26 MG TAB PO SCH (09:00)
[2021-02-07] MEDS: AMLODIPINE 10 MG TAB PO SCH (09:00)
[2021-02-07] MEDS: ASPIRIN EC 81 MG TAB PO SCH (10:34)
[2021-02-07] MEDS: PANTOPRAZOLE 40MG TABLET PO SCH (10:34)
--- NOTE | 2021-02-07 12:16 | P.DS ---
Admission Date: 02/05/21 Discharge Date: 02/07/21 Primary Care Provider: Lauren Disposition: ROUTINE DISCHARGE Discharge Condition: FAIR Reason for Admission: acute chf exacerbation - Problems (1) NSTEMI (non-ST elevated myocardial infarction) Current Visit: Yes Status: Acute (2) Malignant hypertension Current Visit: Yes Status: Acute (3) Acute systolic heart failure Current Visit: Yes Status: Acute (4) Acute respiratory failure with hypoxia Current Visit: Yes Status: Acute (5) Tobacco use disorder Current Visit: Yes Status: Chronic Brief History of Present Illness: Mr. Hart is a 65 yo M with HTN who presents with sudden onset SOB tonight. EMS was called, and his room air sats were 86%, BP 218/135 and tachycardic to the 140s. He was placed on BIPAP and started on a nitroglycerin drip in the ED. He reported progressive SOB and LORA over a few days. He endorsed orthopnea, PND, edema, wheezing, cough. No known history of CHF or diabetes. H/H 9.7 BUN 20 Cr 1.85 GFR 45 Glu 255 BNP 38490. Patient hospitalized for further management of acute CHF. Hospital Course: Patient's troponin trended up to 6.7. Patient diagnosed with NSTEMI. He was evaluated by cardiology-Dr. Ivy who performed cardiac catheterization. Patient noted to have normal coronary arteries, no percutaneous intervention done. He was treated with nitroglycerin drip for malignant hypertension. Also treated with IV Lasix for CHF. Patient respiratory condition improved, blood pressure responded to nitroglycerin drip. He was later started on oral amlodipine to control his blood pressure. Echocardiogram demonstrated EF of 35 to 40%. Patient started on Coreg and Entresto per cardiology recommendation. Nitroglycerin drip was later weaned off. Patient has been normotensive with the current antihypertensive regimen. His shortness of breath has improved and he is tolerating room air both at rest and with ambulation. I discussed with him the importance of compliance with his medications, the need for blood pressure control and low-sodium diet. Patient voiced understanding. He is discharged with oral Lasix therapy. Patient advised to follow with cardiology within 1 to 2 weeks. Vital Signs/Physical Exam: Temp Pulse Resp BP Pulse Ox 98.9 F 80 18 99/65 91 02/07/21 08:00 02/07/21 08:00 02/07/21 08:00 02/07/21 09:00 02/07/21 08:00 General: Alert, In no apparent distress, Oriented x3 HEENT: Mucous membr. moist/pink Neck: JVD not distended Respiratory: Clear to auscultation bilaterally, Normal air movement Cardiovascular: No edema, Regular rate/rhythm, Normal S1 S2, No murmurs Gastrointestinal: Normal bowel sounds, Soft and benign, Non-distended, No tenderness Musculoskeletal: No swelling, No tenderness Integumentary: No rashes, No erythema Neurological: Normal speech, Normal strength at 5/5 x4 extr Laboratory Data at Discharge: WBC 11.50 K/uL (4.3-10.9) H D 02/07/21 05:15 Hgb 10.9 g/dL (13.6-17.9) L 02/07/21 05:15 Hct 36.0 % (39.6-49.0) L 02/07/21 05:15 Plt Count 281 K/uL (152-406) 02/07/21 05:15 PT 14.4 SECONDS (9.5-12.5) H 02/05/21 00:55 INR 1.25 02/05/21 00:55 Sodium 138 mmol/L (136-145) 02/07/21 05:15 Potassium 4.0 mmol/L (3.5-5.1) 02/07/21 05:15 BUN 24 mg/dL (7-18) H 02/07/21 05:15 Creatinine 1.88 mg/dL (0.55-1.3) H 02/07/21 05:15 Glucose 99 mg/dL (74-106) 02/07/21 05:15 Phosphorus 3.4 mg/dL (2.5-4.9) 02/07/21 05:15 Magnesium 2.0 mg/dL (1.8-2.4) 02/07/21 05:15 Total Bilirubin 0.8 mg/dL (0.2-1.0) 02/07/21 05:15 AST 92 U/L (15-37) H D 02/07/21 05:15 ALT 43 U/L (12-78) 02/07/21 05:15 Alkaline Phosphatase 70 U/L (45-117) 02/07/21 05:15 Troponin I 6.72 ng/mL (0.0-0.045) H* D 02/05/21 10:00 Triglycerides 91 mg/dL (<150) 02/06/21 03:45 Cholesterol 142 mg/dL (<200) 02/06/21 03:45 HDL Cholesterol 50 mg/dL (40-60) 02/06/21 03:45 Cholesterol/HDL Ratio 2.84 02/06/21 03:45 Home Medications: Allopurinol 100 mg PO DAILY 02/06/21 Amlodipine [Norvasc*] 10 mg PO DAILY #30 tab 02/07/21 Aspirin [Aspirin EC] 81 mg PO DAILY #30 tablet. 02/07/21 Furosemide [Lasix] 40 mg PO DAILY #30 tablet 02/07/21 Pantoprazole [Protonix Tab*] 40 mg PO DAILY #30 tab 02/07/21 Sacubitril/Valsartan [Entresto 24 mg-26 mg Tablet] 1 tab PO BID #60 tab 02/07/21 carvediloL [Coreg*] 25 mg PO BID 6AM 6PM #60 tab 02/07/21 New Medications: Aspirin [Aspirin EC] 81 mg PO DAILY #30 tablet. carvediloL [Coreg*] 25 mg PO BID 6AM 6PM #60 tab Sacubitril/Valsartan [Entresto 24 mg-26 mg Tablet] 1 tab PO BID #60 tab Furosemide [Lasix] 40 mg PO DAILY #30 tablet Amlodipine [Norvasc*] 10 mg PO DAILY #30 tab Pantoprazole [Protonix Tab*] 40 mg PO DAILY #30 tab Diet: AHA Activity: Ad triston Followup: NONE,NONE [Primary Care Provider] - 1 Week Seven Ivy MD [ACTIVE - CAN ADMIT] - 1-2 Weeks Time spent managing pt's care (in minutes): 42
[2021-02-07 12:28] VITALS: BP 124/75; TEMP 98.8
--- NOTE | 2021-02-07 12:41 | EKG ---
Test Date: 2021-02-05 Test Time: 11:41:05 [employer]: GEOVANNI MEASUREMENT RESULTS: Intervals: Rate: 100 [place]: 116 QRSD: 84 QT: 396 QTc: 510 Glide: P: 50 [place]: 116 QRS: 30 T: 236 INTERPRETIVE STATEMENTS: Sinus rhythm with occasional premature ventricular complexes Possible Left atrial enlargement Left ventricular hypertrophy T wave abnormality, consider inferolateral ischemia Prolonged QT Abnormal ECG Compared to ECG 02/05/2021 11:39:55 Ventricular premature complex(es) now present Prolonged QT interval now present Sinus tachycardia no longer present T-wave abnormality still present Possible ischemia still present Electronically Signed On 02-07-21 12:36:01 [employer] by Nathanael Gudino
--- NOTE | 2021-02-09 21:12 | PN ---
Date of Progress Note: 02/06/2021 Subjective: Mr. Hart was admitted with congestive heart failure to Dr. Valentin's service. He was s een by Dr. Ivy yesterday. Echocardiogram is pending. Patient had diuresed well. His O2 saturati on is adequate. He remained in sinus rhythm. His chest is clear. His edema has improved. We will continue present regimen with aspirin, beta-blockers, Lasix, and RUTHY inhibitor. See what the echocar diogram shows and make further decisions. We will be happy to see him in the office as an outpatient . BECCA/JAVIER Voice ID: [id number] Report ID: [id number]
== END 2021-02-07 13:35 | disposition home or self-care (01) | DRG 280 ==
LOC: ER 01:47 → ERHOLD 03:21 → 2ND 02-06 17:12
PROVIDERS: ADMIT Internal Medicine; ATTEND Internal Medicine
PROC: 4A023N7 Measurement of Cardiac Sampling and Pressure, Left Heart, Percutaneous Approach (ICD-10-PCS; principal; 2021-02-05)
PROC: B2111ZZ Fluoroscopy of Multiple Coronary Arteries using Low Osmolar Contrast (ICD-10-PCS; 2021-02-05)
PROC: 5A09457 Assistance with Respiratory Ventilation, 24-96 Consecutive Hours, Continuous Positive Airway Pressure (ICD-10-PCS; 2021-02-05)
DX: I21.4 Non-ST elevation (NSTEMI) myocardial infarction (principal); J96.01 Acute respiratory failure with hypoxia; I50.21 Acute systolic (congestive) heart failure; I16.1 Hypertensive emergency; N17.9 Acute kidney failure, unspecified; I11.0 Hypertensive heart disease with heart failure; D64.9 Anemia, unspecified; F17.210 Nicotine dependence, cigarettes, uncomplicated; R73.9 Hyperglycemia, unspecified; R00.0 Tachycardia, unspecified; Z79.82 Long term (current) use of aspirin; Z79.899 Other long term (current) drug therapy; Z20.822 Contact with and (suspected) exposure to COVID-19; Z23 Encounter for immunization
CPT/HCPCS: 0240U; 36415; 71045; 80048; 80053; 80061; 80076; 81003; 82607; 82728; 82746; 82805; 82947; 83036; 83540; 83735; 83880; 84100; 84439; 84443; 84466; 84484; 85025; 85610; 90471; 90732; 93005; 93306; 93454; 94660; 99291; C1893; J0360; J1644; J1940; J2250; J2270; J3010; J7040